=== PATIENT | male | born 1955 | race African-American/Black ===

== ENCOUNTER 2018-02-20 20:02 | Emergency (ER) | payer MEDICARE ==
[~2018-02-20] VITALS: Ht 177.8 cm; Wt 80.0 kg
[2018-02-20 20:47] VITALS: BP 157/84
== END 2018-02-20 23:00 | disposition left against medical advice (07) ==
LOC: ER 20:02
DX: Z53.21 Procedure and treatment not carried out due to patient leaving prior to being seen by health care provider (principal)